=== PATIENT | female | born 1970 | race Caucasian/White ===

== ENCOUNTER 2018-01-19 18:44 | Inpatient (IN) | payer OTHER ==
[2018-01-19 19:16] LABS: URINE HCG POC HCG NEGATIVE (Negative)
[2018-01-19 19:31] LABS: ADD MAN DIFF? NO
[2018-01-19 19:34] LABS: BASO # 0.1 x10^3/uL (0.0-0.2); BASO % 1 % (0-3); EOS # 0.2 x10^3/uL (0.0-0.7); EOS % 3 % (0-3); LYMPH # 1.3 x10^3/uL (1.0-4.8); LYMPH % 18 % (24-48); MEAN CORPUSCULAR HEMOGLOBIN 17 pg (25-35); MEAN CORPUSCULAR HGB CONC 29 g/dL (31-37); MEAN CORPUSCULAR VOLUME 57 fL (79-100); MONO # 0.7 x10^3/uL (0.0-1.1); MONO % 10 % (0-9); NEUT # 4.8 x10^3uL (1.8-7.7); NEUT % 68 % (31-73); PLATELET COUNT 238 x10^3/uL (140-400); RED CELL DISTRIBUTION WIDTH 19.8 % (11.5-14.5)
[2018-01-19 19:36] LABS: HEMOGLOBIN 6.4 g/dL (12.0-15.5)
[2018-01-19 19:44] LABS: ANION GAP 8 (6-14); BLOOD UREA NITROGEN 12 mg/dL (7-20); BUN/CREATININE RATIO 10 (6-20); CALCIUM 8.5 mg/dL (8.5-10.1); CARBON DIOXIDE 26 mmol/L (21-32); CHLORIDE 103 mmol/L (98-107); CREATININE 1.2 mg/dL (0.6-1.0); GFR 47.9; GLUCOSE 113 mg/dL (70-99); POTASSIUM 3.9 mmol/L (3.5-5.1); SODIUM 137 mmol/L (136-145)
[2018-01-19] MEDS ORDERED: ONDANSETRON PF 4 MG/2 ML VIAL. IV (19:45)
[2018-01-19 19:49] LABS: ALBUMIN 3.1 g/dL (3.4-5.0); ALBUMIN/GLOBULIN RATIO 0.7 (1.0-1.7); ALK PHOS 64 U/L (46-116); ALT (SGPT) 18 U/L (14-59); AST (SGOT) 15 U/L (15-37); TOTAL BILIRUBIN 0.3 mg/dL (0.2-1.0); TOTAL PROTEIN 7.5 g/dL (6.4-8.2)
[2018-01-19 19:56] LABS: ANISOCYTOSIS SLIGHT; HYPOCHROMIA MARKED; MICROCYTOSIS MARKED; PLT ESTIMATE ADEQUATE (ADEQUATE); POLYCHROMASIA SLIGHT
[2018-01-19 20:11] LABS: D-DIMER 0.47 ug/mlFEU (0.00-0.50); PROTHROMBIN TIME PATIENT 12.7 SEC (11.7-14.0)
[2018-01-19] MEDS: LEVONORGESTREL ETH ESTRADIOL PO (21:24)
[2018-01-19] MEDS: CITALOPRAM 20 MG TABLET. PO (21:24)
[2018-01-19] MEDS: traZODone 100 MG TABLET. PO (21:24)
[2018-01-19 22:09] LABS: IMMEDIATE SPIN CROSSMATCH 1 1
[2018-01-20 08:28] LABS: ADD MAN DIFF? NO
[2018-01-20 08:50] LABS: % SAT IRON 5 % (15-34); IRON,SERUM 24 ug/dL (50-170)
[2018-01-20 08:52] LABS: BASO % 1 % (0-3); EOS # 0.1 x10^3/uL (0.0-0.7); EOS % 3 % (0-3); HEMATOCRIT 23.3 % (36.0-47.0); HEMOGLOBIN 7.1 g/dL (12.0-15.5); LYMPH # 1.1 x10^3/uL (1.0-4.8); LYMPH % 22 % (24-48); MEAN CORPUSCULAR HEMOGLOBIN 18 pg (25-35); MEAN CORPUSCULAR HGB CONC 30 g/dL (31-37); MEAN CORPUSCULAR VOLUME 59 fL (79-100); MONO # 0.3 x10^3/uL (0.0-1.1); MONO % 6 % (0-9); NEUT # 3.5 x10^3uL (1.8-7.7); NEUT % 69 % (31-73); PLATELET COUNT 183 x10^3/uL (140-400); RED BLOOD COUNT 3.97 x10^6/uL (3.50-5.40); WHITE BLOOD COUNT 5.1 x10^3/uL (4.0-11.0)
[2018-01-20 08:54] LABS: ALBUMIN 2.9 g/dL (3.4-5.0); ALBUMIN/GLOBULIN RATIO 0.7 (1.0-1.7); ALK PHOS 58 U/L (46-116); ALT (SGPT) 17 U/L (14-59); ANION GAP 9 (6-14); AST (SGOT) 16 U/L (15-37); BLOOD UREA NITROGEN 9 mg/dL (7-20); BUN/CREATININE RATIO 10 (6-20); CALCIUM 8.4 mg/dL (8.5-10.1); CARBON DIOXIDE 27 mmol/L (21-32); CHLORIDE 104 mmol/L (98-107); CREATININE 0.9 mg/dL (0.6-1.0); GFR 66.8; GLUCOSE 126 mg/dL (70-99); POTASSIUM 3.6 mmol/L (3.5-5.1); SODIUM 140 mmol/L (136-145); TOTAL BILIRUBIN 0.5 mg/dL (0.2-1.0)
[2018-01-20 18:40] LABS: THYROID STIM HORMONE (TSH) 2.096 uIU/mL (0.358-3.74)
[2018-01-20] MEDS: traZODone 100 MG TABLET. PO (20:50)
[2018-01-20] MEDS: LEVONORGESTREL ETH ESTRADIOL PO (20:50)
[2018-01-20] MEDS: CITALOPRAM 20 MG TABLET. PO (20:50)
[2018-01-21] MEDS: LORazepam 1 MG TABLET PO (12:00)
[2018-01-21] MEDS: IBUPROFEN 800 MG TABLET. PO (14:46)
[2018-01-21] MEDS: IRON SUCROSE COMPLEX 500 MG in IV NORMAL SALINE 250ML 250 ML IV (14:47)
== END 2018-01-21 18:25 | disposition home or self-care (01) | DRG 744 ==
LOC: ER 18:44 → 5 SOUTH 19:42
PROVIDERS: Family Medicine
PROC: 30233N1 Transfusion of Nonautologous Red Blood Cells into Peripheral Vein, Percutaneous Approach (ICD-10-PCS; principal; 2018-01-19)
PROC: 0UDB7ZX Extraction of Endometrium, Via Natural or Artificial Opening, Diagnostic (ICD-10-PCS; 2018-01-21)
DX: C54.1 Malignant neoplasm of endometrium (principal); N17.0 Acute kidney failure with tubular necrosis; Z68.43 Body mass index [BMI] 50.0-59.9, adult; D25.9 Leiomyoma of uterus, unspecified; N92.0 Excessive and frequent menstruation with regular cycle; D50.9 Iron deficiency anemia, unspecified; E66.01 Morbid (severe) obesity due to excess calories; N93.8 Other specified abnormal uterine and vaginal bleeding; F32.9 Major depressive disorder, single episode, unspecified; F41.9 Anxiety disorder, unspecified; Z90.49 Acquired absence of other specified parts of digestive tract
CPT/HCPCS: 36415; 36430; 71045; 76830; 76856; 80053; 81025; 83036; 83540; 83550; 84443; 85025; 85379; 85610; 86850; 86900; 86901; 86920; 88305; 88341; 88342; 93005; 99285; 99285-25; J1756; J7050; P9016

== ENCOUNTER 2021-12-09 17:24 | Emergency (ER) | payer BC, OTHER ==
[~2021-12-09] VITALS: Ht 160 cm; Wt 159.0 kg
[~2021-12-09 17:24] MED LIST: B12/1TAB3 PO; CITA40TA6 PO; FERR325T14 PO; LEVO1TAB33 PO; TRAZ-123 PO
[2021-12-09] MEDS ORDERED: IV NORMAL SALINE 1000ML BAG 1,000 ML IV ONE (18:15)
[2021-12-09] MEDS ORDERED: ONDANSETRON PF 4 MG/2 ML VIAL. IVP ONE (18:15)
[2021-12-09] MEDS ORDERED: fentaNYL PF VIAL 100 MCG/2 ML VIAL IVP ONE (18:15)
[2021-12-09 18:28] LABS: BACTERIA,URINE MODERATE /HPF (0-FEW); RBC,URINE 0 /HPF (0-2)
[2021-12-09 18:42] LABS: BASO % 0 % (0-3); EOS # 0.1 x10^3/uL (0.0-0.7); EOS % 1 % (0-3); HEMATOCRIT 41.4 % (36.0-47.0); HEMOGLOBIN 13.9 g/dL (12.0-15.5); LYMPH # 0.3 x10^3/uL (1.0-4.8); LYMPH % 7 % (24-48); MEAN CORPUSCULAR HEMOGLOBIN 29 pg (25-35); MEAN CORPUSCULAR HGB CONC 34 g/dL (31-37); MEAN CORPUSCULAR VOLUME 85 fL (79-100); MONO # 0.5 x10^3/uL (0.0-1.1); MONO % 11 % (0-9); NEUT # 3.7 x10^3/uL (1.8-7.7); NEUT % 80 % (31-73); PLATELET COUNT 162 x10^3/uL (140-400); RED BLOOD COUNT 4.85 x10^6/uL (3.50-5.40); RED CELL DISTRIBUTION WIDTH 15.2 % (11.5-14.5); WHITE BLOOD COUNT 4.6 x10^3/uL (4.0-11.0)
--- NOTE | 2021-12-09 18:42 | PHYS DOC ---
Past Medical History Past Medical History: Anxiety, Depression Past Surgical History: Hysterectomy, Tonsillectomy Smoking Status: Never Smoker Alcohol Use: None Drug Use: None General Adult EDM: Chief Complaint: ABDOMINAL PAIN HPI: HPI: Patient is a 51-year-old female that presents today with abdominal pain. Patient states she has had abdominal pain since Wednesday she also has some nausea and vomiting associated with it she has had 1-2 episodes of diarrhea as well. Patient states that she has vomited once and after that vomiting she said she had some chills but she has not been running a fever that she knows of. She says most of the pain is located in the upper abdomen area she denies heartburn, chest pain, shortness of breath. Patient states the only abdominal surgery that she has had is that a total hysterectomy with oophorectomy as well, she still has her appendix and her gallbladder. Review of Systems: Review of Systems: Constitutional: Denies fever or chills. [] Eyes: Denies change in visual acuity. [] HENT: Denies nasal congestion or sore throat. [] Respiratory: Denies cough or shortness of breath. [] Cardiovascular: Denies chest pain or edema. [] GI: abdominal pain, nausea, vomiting, diarrhea. [] : Denies dysuria. [] Musculoskeletal: Denies back pain or joint pain. [] Integument: Denies rash. [] Neurologic: Denies headache, focal weakness or sensory changes. [] Endocrine: Denies polyuria or polydipsia. [] Lymphatic: Denies swollen glands. [] Psychiatric: Denies depression or anxiety. [] Heart Score: C/O Chest Pain: No Risk Factors: Risk Factors: DM, Current or recent (<one month) smoker, HTN, HLP, family history of CAD, obesity. Risk Scores: Score 0 - 3: 2.5% MACE over next 6 weeks - Discharge Home Score 4 - 6: 20.3% MACE over next 6 weeks - Admit for Clinical Observation Score 7 - 10: 72.7% MACE over next 6 weeks - Early Invasive Strategies Current Medications: Current Medications Medications (Trade) Dose Ordered Sig/Laly Start Time Stop Time Status Last Admin Dose Admin Fentanyl Citrate (Fentanyl 2ml Vial) 50 mcg 1X ONCE 12/09/21 18:15 12/09/21 18:16 DC 12/09/21 18:34 50 MCG Ondansetron HCl (Zofran) 4 mg 1X ONCE 12/09/21 18:15 12/09/21 18:16 DC 12/09/21 18:33 4 MG Sodium Chloride 1,000 ml @ 999 mls/hr 1X ONCE 12/09/21 18:15 12/09/21 19:15 12/09/21 18:33 999 MLS/HR Allergies: Allergies: Allergies Coded Allergies Type Severity Reaction Last Updated Verified No Known Drug Allergies 12/09/21 No Physical Exam: PE: Constitutional: Well developed, well nourished, mild distress, non-toxic appearance. [] HENT: Normocephalic, atraumatic, bilateral external ears normal, oropharynx moist, no oral exudates, nose normal. [] Eyes: PERRLA, EOMI, conjunctiva normal, no discharge. [] Neck: Normal range of motion, no tenderness, supple, no stridor. [] Cardiovascular:Heart rate regular rhythm, no murmur [] Lungs & Thorax: Bilateral breath sounds clear to auscultation [] Abdomen: Bowel sounds hypoactive, soft, tenderness in the epigastric region, no masses, no pulsatile masses. [] Skin: Warm, dry, no erythema, no rash. [] Back: No tenderness, no CVA tenderness. [] Extremities: No tenderness, no cyanosis, no clubbing, ROM intact, no edema. [] Neurologic: Alert and oriented X 3, normal motor function, normal sensory function, no focal deficits noted. [] Psychologic: Affect normal, judgement normal, mood normal. [] Current Patient Data: Labs: Laboratory Tests Test 12/09/21 17:39 Urine Collection Type Unknown Urine Color (Auto) Yellow Urine Turbidity Hazy Urine pH (Auto) 6.5 (<5.0-8.0) Urine Specific [place] 1.021 (1.000-1.030) Urine Protein (Auto) Negative mg/dL (Negative) Urine Glucose (Auto)(UA) Negative mg/dL (Negative) Urine Ketones (Auto) Negative mg/dL (Negative) Urine Blood (Auto) Negative (Negative) Urine Nitrite Negative (Negative) Urine Bilirubin (Auto) Negative (Negative) Urine Urobilinogen (Auto) Normal mg/dL (Normal) Urine Leukocyte Esterase (Auto) Moderate (Negative) Urine RBC 0 /HPF (0-2) Urine WBC 11-20 /HPF (0-4) Urine Squamous Epithelial Cells Many /LPF Urine Bacteria Moderate /HPF (0-FEW) Urine Mucus Mod /LPF Vital Signs: Vital Signs Date Time Temp Pulse Resp B/P (MAP) Pulse Ox O2 Delivery O2 Flow Rate FiO2 12/09/21 21:30 91 17 134/82 (99) 99 12/09/21 20:36 Room Air 12/09/21 18:34 2 Room Air 12/09/21 17:54 78 16 136/71 (92) 99 12/09/21 17:42 90 14 131/81 (98) 98 12/09/21 17:30 99.5 90 20 131/81 (98) 97 Room Air 99.5 Vital Signs Date Time Temp Pulse Resp B/P (MAP) Pulse Ox O2 Delivery O2 Flow Rate FiO2 12/09/21 18:34 2 Room Air 12/09/21 17:30 99.5 90 131/81 (98) 97 99.5 EKG: EKG: [] Radiology/Procedures: Radiology/Procedures: REASON: abdominal pain PROCEDURE: CT ABD PELV W/ IV CONTRST ONLY Exam: CT of abdomen and pelvis with contrast INDICATION: Abdominal pain TECHNIQUE: Sequential axial images through the abdomen and pelvis obtained following the administration on the administration of 75 mL of Isovue-370 IV contrast. Sagittal and coronal reformatted images were reconstructed from the axial data and reviewed. Exposure: One or more of the following in the visualized dose reduction techniques were utilized for this examination: 1. Automated exposure control 2. Adjustment of the MA and/or KV according to patient size 3. Use of iterative of reconstructive technique Comparisons: None FINDINGS: Heart size is normal. No pericardial effusion. Visualized lung bases are clear. No pleural effusion. Liver, spleen, pancreas, gallbladder and adrenals are unremarkable. No perinephric inflammation or hydronephrosis. No renal or ureteral calculi are identified. Bladder is decompressed not well evaluated. Uterus is absent. No abnormal adnexal mass. Moderate amount of stool is noted in colon. There is a long segment of wall thickening mucosal hyperenhancement involving the distal small bowel. No free intra-abdominal air or fluid. No obstruction. Abdominal aorta has normal course and caliber. Abdominal vasculature is patent. No enlarged abdominal lymph nodes are identified. No suspicious osseous lesions or acute fractures. IMPRESSION: Long segment bowel wall thickening involving the distal small bowel favored be infectious or inflammatory in etiology. Correlate for inflammatory bowel disease Electronically signed by: Hilary Miller MD (12/09/2021 7:42 PM) [facility] REASON: RUQ ABDOMINAL PAIN PROCEDURE: ABDOMEN LTD EXAM: ULTRASOUND ABDOMEN LIMITED CLINICAL HISTORY: Reason: RUQ ABDOMINAL PAIN / Spl. Instructions: / History: COMPARISON: CT abdomen pelvis from today. TECHNIQUE: Limited ultrasound examination of the right upper quadrant of the abdomen was performed. FINDINGS: Pancreas was obscured. Liver is difficult to evaluate. Liver appears echogenic possible fatty infiltration. Gallstones are not identified. There is mild sludge in the gallbladder. There is possible gallbladder wall thickening. Right kidney was 11 cm in length without hydronephrosis. Common duct was normal measuring 4 mm. IMPRESSION: 1. Limited study. 2. No gallstones noted, but sludge noted in the gallbladder with possible gallbladder wall thickening.. 3. Liver poorly evaluated possible fatty infiltration. Electronically signed by: Uriah Cadet MD (12/09/2021 9:14 PM) [facility] Course & Med Decision Making: Course & Med Decision Making Pertinent Labs and Imaging studies reviewed. (See chart for details) 2014 reassessment of patient shows her continue to have right upper quadrant abdominal pain, she still continues to have nausea as well, patient states that the fentanyl that we gave her only lasted about 10 or 15 minutes and she still continues to have pain. Patient states that she is having right upper quadrant abdominal pain and is concerned this may be her gallbladder because she has pain into her back. Will order some Pepcid, Dilaudid, and an ultrasound of her gallbladder to rule out any gallbladder disease 2129 reviewed radiological results with patient in regards to her ultrasound I did inform her there was sludge in her gallbladder, but her gallbladder did not have any stones or appeared inflamed. Patient will be sent home to manage this on an outpatient basis with oral pain medication and Pepcid, patient is to follow-up with her primary care physician this week to get an appointment with general surgeon Dr. Ortega for evaluation to have her gallbladder removed. Patient is instructed to stick with a clear liquid diet for the next 12 to 24 hours and then advance as tolerated avoiding alcohol, caffeine, spicy foods, or nicotine. We will also treat the patient for UTI and colitis with Cipro and Flagyl. Yeison Disclaimer: Yeison Disclaimer: This electronic medical record was generated, in whole or in part, using a voice recognition dictation system. Departure Departure Impression: Primary Impression: Abdominal pain Qualified Codes: R10.13 - Epigastric pain Additional Impression: Gallbladder sludge Disposition: HOME / SELF CARE / HOMELESS Condition: STABLE Referrals: URIAH CHIN Jr, MD (PCP) ORTIZ ORTEGA MD Patient Instructions: Abdominal Pain, Clear Liquid Diet, Diet for Gastroesophageal Reflux Disease, Adult Additional Instructions: Clear liquid diet for the next 12 to 24 hours then advance to the brat diet (bananas, rice, applesauce, toast, or mashed potatoes), then advance your diet to what she can tolerate, avoid alcohol, nicotine, spicy foods, and caffeine. Pepcid 20 mg twice daily Percocet take 1 to 2 tablets every 6 hours as needed for severe pain, use with c aution may cause drowsiness and constipation Zofran take 1 tablet every 6-8 hours as needed for nausea, use with caution may cause constipation Return to the emergency department for increased abdominal pain, development of a fever, inability to keep any by mouth fluids down, or chest pain Scripts Metronidazole (METRONIDAZOLE) 500 Mg Tablet 1 TAB PO BID for 10 Days, #20 TAB 0 Refills Prov: NUNO CARTER APRN 12/09/21 Ciprofloxacin Hcl (CIPRO) 500 Mg Tablet 1 TAB PO BID for 10 Days, #20 TAB 0 Refills Prov: NUNO CARTER APRN 12/09/21 Famotidine (PEPCID) 20 Mg Tablet 20 MG PO BID, #30 TAB Prov: NUNO CARTER APRN 12/09/21 Oxycodone/Apap 5-325 (PERCOCET 5-325 MG TABLET ) 1 Each Tablet 2 TAB PO PRN Q6HRS PRN for SEVERE PAIN 7-10 MDD 3 Tablet(s), #20 TAB 0 Refills Prov: NUNO CARTER APRN 12/09/21 Ondansetron (ONDANSETRON ODT) 4 Mg Tab.rapdis 1 TAB PO PRN Q6-8HRS, #16 TAB Prov: NUNO CARTER APRN 12/09/21 NUNO CARTER APRN Dec 09, 2021 18:42
[2021-12-09 18:49] LABS: CALCIUM 8.7 mg/dL (8.5-10.1); CREATININE 0.8 mg/dL (0.6-1.0); GFR 75.3; POTASSIUM 4.2 mmol/L (3.5-5.1)
[2021-12-09 18:55] LABS: ALBUMIN 3.1 g/dL (3.4-5.0); ALBUMIN/GLOBULIN RATIO 0.9 (1.0-1.7); TOTAL BILIRUBIN 0.4 mg/dL (0.2-1.0); TOTAL PROTEIN 6.6 g/dL (6.4-8.2)
[2021-12-09] MEDS ORDERED: IOHEXOL 300 MG/ML 100ML VIAL. IV ONE (19:00)
[2021-12-09] MEDS ORDERED: CONTRAST GIVEN. MC PRN (19:00)
[2021-12-09 19:23] LABS: % LYMPHS 4 % (24-48); % MONOS 7 % (0-10); % SEGS 89 % (35-66); BURR CELLS PRESENT; PLT ESTIMATE ADEQUATE (ADEQUATE)
--- NOTE | 2021-12-09 19:45 | RAD ---
Exam: CT of abdomen and pelvis with contrast INDICATION: Abdominal pain TECHNIQUE: Sequential axial images through the abdomen and pelvis obtained following the administrati on on the administration of 75 mL of Isovue-370 IV contrast. Sagittal and coronal reformatted images were reconstructed from the axial data and reviewed. Exposure: One or more of the following in the visualized dose reduction techniques were utilized for this examination: 1. Automated exposure control 2. Adjustment of the MA and/or KV according to patient size 3. Use of iterative of reconstructive technique Comparisons: None FINDINGS: Heart size is normal. No pericardial effusion. Visualized lung bases are clear. No pleural effusion. Liver, spleen, pancreas, gallbladder and adrenals are unremarkable. No perinephric inflammation or hydronephrosis. No renal or ureteral calculi are identified. Bladder is decompressed not well evaluated. Uterus is absent. No abnormal adnexal mass. Moderate amount of stool is noted in colon. There is a long segment of wall thickening mucosal hypere nhancement involving the distal small bowel. No free intra-abdominal air or fluid. No obstruction. Abdominal aorta has normal course and caliber. Abdominal vasculature is patent. No enlarged abdominal lymph nodes are identified. No suspicious osseous lesions or acute fractures. IMPRESSION: Long segment bowel wall thickening involving the distal small bowel favored be infectious or inflamma tory in etiology. Correlate for inflammatory bowel disease Electronically signed by: Hilary Miller MD (12/09/2021 7:42 PM) [facility]
[2021-12-09] MEDS ORDERED: HYDROmorphone 2 MG/ML INJ. IVP ONE (20:30)
[2021-12-09] MEDS ORDERED: FAMOTIDINE 20 MG/2 ML VIAL IVP ONE (20:30)
--- NOTE | 2021-12-09 21:16 | RAD ---
EXAM: ULTRASOUND ABDOMEN LIMITED CLINICAL HISTORY: Reason: RUQ ABDOMINAL PAIN / Spl. Instructions: / History: COMPARISON: CT abdomen pelvis from today. TECHNIQUE: Limited ultrasound examination of the right upper quadrant of the abdomen was performed. FINDINGS: Pancreas was obscured. Liver is difficult to evaluate. Liver appears echogenic possible fatty infiltr ation. Gallstones are not identified. There is mild sludge in the gallbladder. There is possible gall bladder wall thickening. Right kidney was 11 cm in length without hydronephrosis. Common duct was nor mal measuring 4 mm. IMPRESSION: 1. Limited study. 2. No gallstones noted, but sludge noted in the gallbladder with possible gallbladder wall thickening .. 3. Liver poorly evaluated possible fatty infiltration. Electronically signed by: Uriah Cadet MD (12/09/2021 9:14 PM) [facility]
[2021-12-09 21:30] VITALS: BP 134/82
[2021-12-09] MEDS ORDERED: OXYC1TAB15 PO (21:40)
[2021-12-09] MEDS ORDERED: ONDA4TAB12 PO (21:40)
[2021-12-09] MEDS ORDERED: FAMO-63 PO (21:40)
[2021-12-09] MEDS ORDERED: METR-34 PO (21:59)
[2021-12-09] MEDS ORDERED: CIPR500T94 PO (21:59)
--- NOTE | 2021-12-11 10:27 | EKG ---
[facility] [address] [place] [address] Test Date: 2021-12-09 Test Time: 17:49:56 Pat Name: JOSE ALFREDO CHAUDHARI Department: Room: Gender: F Recovery Manager: : [id number] Requested By: NUNO CARTER Order Number: [id number] Reading MD: Bradford Fung Measurements Intervals [place] Rate: 77 P: 14 PA: 156 QRS: -20 QRSD: 90 T: 26 QT: 376 QTc: 427 Interpretive Statements SINUS RHYTHM LEFTWARD AXIS LEFT VENTRICULAR HYPERTROPHY Electronically Signed On 12-12-2021 13:39:40 CDT by Bradford Fung
== END 2021-12-09 21:49 | disposition home or self-care (01) ==
LOC: ER 17:24
DX: R10.13 Epigastric pain (principal); K82.8 Other specified diseases of gallbladder; R11.2 Nausea with vomiting, unspecified; R19.7 Diarrhea, unspecified; Z90.710 Acquired absence of both cervix and uterus
CPT/HCPCS: 36415; 74177; 76705; 80053; 81001; 83605; 83690; 85007; 85025; 87086; 93005; 96361; 96374; 96375; 99285; J1170; J2405; J3010; J3490; J7030; Q9967